=== PATIENT | female | born 1990 | race Two or more races ===

== ENCOUNTER 2019-10-22 19:04 | Emergency (ER) | payer OTHER ==
[~2019-10-22] VITALS: Ht 160 cm; Wt 52.2 kg
[2019-10-22] MEDS ORDERED: TUSNEL LIQUID178 ML PO (21:27)
[2019-10-22] MEDS ORDERED: ZITHROMAX500 MG PO (21:27)
== END 2019-10-22 21:32 | disposition home or self-care (01) ==
LOC: ER 19:04
DX: J00 Acute nasopharyngitis [common cold] (principal); B96.0 Mycoplasma pneumoniae [M. pneumoniae] as the cause of diseases classified elsewhere

== ENCOUNTER 2019-10-26 10:00 | Outpatient (CLI) | payer OTHER ==
[~2019-10-26 10:00] MED LIST: TUSNEL LIQUID178 ML PO; ZITHROMAX500 MG PO
== END 2019-10-26 10:06 | disposition home or self-care (01) ==
LOC: LAB 10:00
DX: D69.8 Other specified hemorrhagic conditions (principal)

== ENCOUNTER 2022-10-11 06:24 | Outpatient (CLI) | payer OTHER | END 2022-10-11 07:00 | disposition home or self-care (01) | LOC: TOM 06:24 | DX: R31.21 Asymptomatic microscopic hematuria (principal); R31.9 Hematuria, unspecified ==

== ENCOUNTER 2022-11-11 14:32 | Emergency (ER) | payer OTHER ==
[~2022-11-11] VITALS: Ht 160 cm; Wt 49.9 kg
[2022-11-11] MEDS ORDERED: TRI-LO-SPRINTE1 EACH PO (15:24)
== END 2022-11-11 17:54 | disposition home or self-care (01) ==
LOC: ER 14:32
DX: G62.9 Polyneuropathy, unspecified (principal); Z88.8 Allergy status to other drugs, medicaments and biological substances

== ENCOUNTER 2023-02-01 15:02 | Outpatient (CLI) | payer OTHER ==
[~2023-02-01 15:02] MED LIST changes: +TRI-LO-SPRINTE1 EACH PO
== END 2023-02-01 15:30 | disposition home or self-care (01) ==
LOC: TOM 15:02
DX: R10.31 Right lower quadrant pain (principal)

== ENCOUNTER 2023-05-21 08:02 | Outpatient (CLI) | payer OTHER | END 2023-05-21 08:20 | disposition home or self-care (01) | LOC: SONOGRAMA 08:02 | DX: R10.31 Right lower quadrant pain (principal) ==

== ENCOUNTER 2023-07-18 06:35 | Emergency (ER) | payer OTHER ==
[~2023-07-18] VITALS: Ht 160 cm; Wt 52.2 kg
== END 2023-07-18 09:09 | disposition home or self-care (01) ==
LOC: ER 06:35
DX: K30 Functional dyspepsia (principal)

== ENCOUNTER 2023-08-09 06:50 | Outpatient (CLI) | payer OTHER | END 2023-08-09 07:15 | disposition home or self-care (01) | LOC: SONOGRAMA 06:50 | DX: R10.31 Right lower quadrant pain (principal) ==

== ENCOUNTER 2024-03-20 08:37 | Outpatient (CLI) | payer OTHER | END 2024-03-20 08:44 | disposition home or self-care (01) | LOC: RAD 08:37 | DX: J32.1 Chronic frontal sinusitis (principal); M47.896 Other spondylosis, lumbar region ==

== ENCOUNTER 2024-07-23 12:36 | Outpatient (CLI) | payer OTHER | END 2024-07-23 12:37 | disposition home or self-care (01) | LOC: NUCLEAR 12:36 | DX: I27.82 Chronic pulmonary embolism (principal) ==

== ENCOUNTER → 2024-09-02 | Outpatient (CLI) | payer OTHER | END | disposition home or self-care (01) | LOC: SONOGRAMA 08:59 | DX: N29 Other disorders of kidney and ureter in diseases classified elsewhere (principal); N28.1 Cyst of kidney, acquired ==

== ENCOUNTER 2024-09-13 13:21 | Emergency (ER) | payer OTHER ==
[~2024-09-13] VITALS: Ht 160 cm; Wt 54.4 kg
[2024-09-13] MEDS ORDERED: POTASSIUM CITR15 MEQ PO (15:15)
[2024-09-13] MEDS ORDERED: TURMERIC 500 M1 EACH PO (15:15)
[2024-09-13] MEDS ORDERED: VITATRUE COMBO1 EACH PO (15:15)
[2024-09-13 16:26] LABS: HEMATOCRIT 34.9 % (36.0-45.00); HEMOGLOBIN 11.7 g/dL (12.0-15.00); MEAN CELL VOLUME 91.2 fL (80.00-100.00); MEAN CORPUSCULAR HEMOGLOBIN 30.6 pg (27.00-32.0); MEAN CORPUSCULAR HGB CONC 33.5 g/dl (32.0-36.0); PLATELET COUNT 156 K/uL (150-450); RED BLOOD COUNT 3.83 M/uL (4.00-6.00); RED CELL DISTRIBUTION WIDTH 12.4 % (11.5-14.5)
[2024-09-13 16:56] LABS: ALBUMIN 4.3 gm/dL (3.4-5.0); ALKALINE PHOSPHATASE 43 U/L (50-136); ALT/SGPT 18 U/L (12-78); ANION GAP 10 (10.0-20.0); AST/SGOT 10 U/L (15-37); BILIRUBIN TOTAL 0.33 mg/dL (0.3-1.2); BLOOD UREA NITROGEN 14 mg/dL (7-18); BUN CREA RATIO 25 (7.0-25.0); CALCIUM 9.3 mg/dL (8.5-10.1); CARBON DIOXIDE 27 mEq/L (21-32); CHLORIDE 108 mmol/L (98-107); CREATININE SERUM 0.55 mg/dL (0.55-1.02); GFR 125.78; GLOBULINA 2.9 G/DL (2.4-3.5); GLUCOSE FASTING 86 mg/dL (65-100); OSMOLALITY SERUM 281 MOSM/KG (275-295); POTASSIUM 3.77 mEq/L (3.5-5.1); SODIUM 141 mmol/L (136-145); TOTAL PROTEIN 7.2 gm/dL (6.4-8.2)
[2024-09-13 16:59] LABS: HCG QUANTITATIVE < 1 mUI/mL (1-3)
[2024-09-13 18:11] LABS: PH,URINE 5.5 (5.0-8.0); URINE APPEARANCE Clear; URINE BILIRRUBIN Negative (NEGATIVE); URINE BLOOD Moderate; URINE COLOR Yellow; URINE GLUCOSE Negative (NEGATIVE); URINE LEUKOCYTE Negative; URINE NITRATE Negative; URINE PROTEIN Negative (NEGATIVE); URINE UROBILINOGEN 0.2 E.U./dl
[2024-09-13 18:19] LABS: URINE BACTERIA 354.8 uL (0.0-1933); URINE EPITHELIAL CELLS 4.2 uL (0.0-38.8); URINE RBC 52.5 uL (0.0-20.8); URINE WBC 2.5 uL (0.0-23.2)
[2024-09-13 18:27] LABS: URINE CAST 0.29 uL (0.0-1.40); URINE KETONE 40 (NEGATIVE)
== END 2024-09-13 18:32 | disposition home or self-care (01) ==
LOC: ER 13:23
PROVIDERS: General Practice
DX: R20.0 Anesthesia of skin (principal); R20.2 Paresthesia of skin; Z91.041 Radiographic dye allergy status

== ENCOUNTER 2025-08-10 15:06 | Outpatient (CLI) | payer OTHER ==
[~2025-08-10 15:06] MED LIST changes: +POTASSIUM CITR15 MEQ PO; +TURMERIC 500 M1 EACH PO; +VITATRUE COMBO1 EACH PO
== END 2025-08-10 16:45 | disposition home or self-care (01) ==
LOC: NST 15:06
PROVIDERS: ATTEND Obstetrics & Gynecology
DX: Z34.83 Encounter for supervision of other normal pregnancy, third trimester (principal)

== ENCOUNTER 2025-09-07 13:11 | Outpatient (CLI) | payer OTHER ==
[~2025-09-07] VITALS: Ht 160 cm; Wt 65.8 kg
[2025-09-07 15:12] VITALS: BP 147/83
[2025-09-07] MEDS ORDERED: ZOLOFT100 MG (16:10)
[2025-09-07 16:26] LABS: BASO % 0.3 % (0.1-1.2); EOS # 0.10 (0.04-0.54); EOS % 1.7 % (0.7-7.0); LYMPH # 0.62 (1.18-3.74); LYMPH % 10.3 % (19.3-53.1); MEAN PLATELET VOLUME 12.00 fl (9.4-12.4); MONO # 0.62 (0.24-0.82); MONO % 10.3 % (4.7-12.5); NEUT # 4.64 (1.56-6.13); NEUT % 77.1 % (34.0-71.1); RED CELL DISTRIBUTION WIDTH 12.9 % (11.6-14.4)
[2025-09-07 16:59] LABS: ALT/SGPT 18.0 U/L (12-78); AST/SGOT 15.0 U/L (15-37); BILIRUBIN TOTAL 0.24 mg/dL (0.3-1.2); BUN CREA RATIO 18.0 (7.0-25.0); CREATININE SERUM 0.44 mg/dL (0.55-1.02); GFR 161.79; GLOBULINA 3.2 G/DL (2.4-3.5); GLUCOSE FASTING 78.0 mg/dL (65-100); OSMOLALITY SERUM 284.0 MOSM/KG (275-295)
[2025-09-07 20:41] VITALS: BP 141/70
[2025-09-07 23:46] VITALS: BP 127/69
[2025-09-08 03:05] VITALS: BP 127/77
[2025-09-08 05:33] LABS: URINE APPEARANCE Clear; URINE BILIRRUBIN Negative (NEGATIVE); URINE BLOOD Negative; URINE COLOR Yellow; URINE GLUCOSE Negative (NEGATIVE); URINE LEUKOCYTE Negative; URINE NITRATE Negative; URINE PROTEIN Negative (NEGATIVE); URINE UROBILINOGEN 0.2 E.U./dl
[2025-09-08 05:42] LABS: URINE BACTERIA 99.5 uL (0.0-1933); URINE EPITHELIAL CELLS 2.7 uL (0.0-38.8); URINE RBC 4.1 uL (0.0-20.8); URINE WBC 4.2 uL (0.0-23.2)
[2025-09-08 05:47] LABS: URINE CAST 0.00 uL (0.0-1.40); URINE KETONE 40 (NEGATIVE)
[2025-09-08 06:24] LABS: BASO % 0.7 % (0.1-1.2); EOS # 0.14 (0.04-0.54); EOS % 2.4 % (0.7-7.0); LYMPH # 0.83 (1.18-3.74); LYMPH % 14.2 % (19.3-53.1); MEAN PLATELET VOLUME 11.60 fl (9.4-12.4); MONO # 0.62 (0.24-0.82); MONO % 10.6 % (4.7-12.5); NEUT # 4.20 (1.56-6.13); NEUT % 71.8 % (34.0-71.1); RED CELL DISTRIBUTION WIDTH 12.8 % (11.6-14.4)
[2025-09-08 06:57] LABS: ALT/SGPT 17.0 U/L (12-78); AST/SGOT 15.0 U/L (15-37); BILIRUBIN TOTAL 0.22 mg/dL (0.3-1.2); BUN CREA RATIO 20.0 (7.0-25.0); CREATININE SERUM 0.35 mg/dL (0.55-1.02); GFR 210.69; GLOBULINA 3.0 G/DL (2.4-3.5); GLUCOSE FASTING 80.0 mg/dL (65-100); OSMOLALITY SERUM 280.0 MOSM/KG (275-295)
[2025-09-08 08:28] VITALS: BP 127/70
== END 2025-09-08 08:48 | disposition home or self-care (01) ==
LOC: NST 13:11 → OBS/DEL 13:11
PROVIDERS: Obstetrics & Gynecology Gynecology; ATTEND Obstetrics & Gynecology
DX: O26.893 Other specified pregnancy related conditions, third trimester (principal); Z3A.37 37 weeks gestation of pregnancy

== ENCOUNTER 2025-09-14 09:00 | Inpatient (IN) | payer OTHER ==
[~2025-09-14] VITALS: Ht 160 cm; Wt 64.4 kg
[~2025-09-14 09:00] MED LIST changes: +ZOLOFT100 MG
[2025-09-19 17:59] VITALS: BP 137/73
[2025-09-19] MEDS ORDERED: MISOPROSTOL 25 MCG TABLET VAG ONE (18:30)
[2025-09-19] MEDS ORDERED: MORPHINE SULFATE 4 MG/ML VIAL IV PRN (18:30)
[2025-09-19 18:58] LABS: BASO % 0.3 % (0.1-1.2); EOS # 0.10 (0.04-0.54); EOS % 1.6 % (0.7-7.0); LYMPH # 0.56 (1.18-3.74); LYMPH % 9.1 % (19.3-53.1); MEAN PLATELET VOLUME 12.30 fl (9.4-12.4); MONO # 0.64 (0.24-0.82); MONO % 10.4 % (4.7-12.5); NEUT # 4.80 (1.56-6.13); NEUT % 78.1 % (34.0-71.1); RED CELL DISTRIBUTION WIDTH 12.7 % (11.6-14.4)
[2025-09-19 18:59] LABS: URINE APPEARANCE Clear; URINE BILIRRUBIN Negative (NEGATIVE); URINE BLOOD Negative; URINE COLOR Yellow; URINE GLUCOSE Negative (NEGATIVE); URINE KETONE Negative (NEGATIVE); URINE LEUKOCYTE Negative; URINE NITRATE Negative; URINE PROTEIN Negative (NEGATIVE); URINE UROBILINOGEN 0.2 E.U./dl
[2025-09-19 19:00] LABS: URINE BACTERIA 84.5 uL (0.0-1933); URINE EPITHELIAL CELLS 4.1 uL (0.0-38.8); URINE RBC 2.1 uL (0.0-20.8); URINE WBC 2.9 uL (0.0-23.2)
[2025-09-19 19:07] LABS: URINE CAST 0.00 uL (0.0-1.40)
[2025-09-19 19:41] LABS: INR < 0.93
[2025-09-19 19:51] LABS: ALT/SGPT 19.0 U/L (12-78); AST/SGOT 16.0 U/L (15-37); BILIRUBIN TOTAL 0.26 mg/dL (0.3-1.2); BUN CREA RATIO 13.0 (7.0-25.0); CREATININE SERUM 0.46 mg/dL (0.55-1.02); GFR 153.7; GLOBULINA 3.5 G/DL (2.4-3.5); GLUCOSE FASTING 143.0 mg/dL (65-100); OSMOLALITY SERUM 279.0 MOSM/KG (275-295)
[2025-09-19 23:21] VITALS: BP 139/82; O2SAT 99
[2025-09-20 03:22] VITALS: BP 138/86
[2025-09-20 07:35] VITALS: BP 149/76
[2025-09-20] MEDS ORDERED: OXYTOCIN 500 ML IV ONE (08:30)
[2025-09-20 11:22] VITALS: BP 139/76
[2025-09-20 15:00] VITALS: BP 145/79
[2025-09-20] MEDS ORDERED: OXYTOCIN 1,000 ML IV SCH (18:45)
[2025-09-20] MEDS ORDERED: MORPHINE SULFATE 4 MG/ML CARTRIDGE IV PRN (18:45)
[2025-09-20] MEDS ORDERED: ERYTHROMYCIN BASE OPHT 1GM EACH TUBE OP ONE (19:15)
[2025-09-20] MEDS ORDERED: OXYTOCIN 20 UNITS/1000ML 0.45% PIGGYBAG IV ONE (19:15)
[2025-09-20] MEDS ORDERED: CARBOPROST TROMETHAMINE 250 MCG/ML AMPUL IM ONE (21:00)
[2025-09-20 22:41] VITALS: BP 148/88
[2025-09-21 01:53] VITALS: BP 128/66
[2025-09-21] MEDS ORDERED: KETOROLAC TROMETHAMINE 60 MG VIAL IM ONE (02:15)
[2025-09-21] MEDS ORDERED: OxyCODONE HCL 5 MG TABLET (ROXICODONE) PO PRN (02:15)
[2025-09-21 08:00] VITALS: BP 140/79
[2025-09-21 16:37] VITALS: BP 144/82
[2025-09-22 02:38] VITALS: BP 130/85
[2025-09-22 08:57] VITALS: BP 150/70
== END 2025-09-22 13:33 | disposition home or self-care (01) | DRG 788 ==
LOC: LDR 09-19 17:18 → OB/GYN 09-19 17:18
PROVIDERS: Obstetrics & Gynecology Gynecology; ADMIT Obstetrics & Gynecology; ATTEND Obstetrics & Gynecology
PROC: 3E0P7VZ Introduction of Hormone into Female Reproductive, Via Natural or Artificial Opening (ICD-10-PCS; 2025-09-19)
PROC: 4A1HXCZ Monitoring of Products of Conception, Cardiac Rate, External Approach (ICD-10-PCS; 2025-09-19)
PROC: 3E033VJ Introduction of Other Hormone into Peripheral Vein, Percutaneous Approach (ICD-10-PCS; 2025-09-20)
PROC: 10D00Z1 Extraction of Products of Conception, Low, Open Approach (ICD-10-PCS; principal; 2025-09-20 19:15)
DX: O24.420 Gestational diabetes mellitus in childbirth, diet controlled (principal); O13.4 Gestational [pregnancy-induced] hypertension without significant proteinuria, complicating childbirth; Z3A.38 38 weeks gestation of pregnancy; Z37.0 Single live birth

== ENCOUNTER 2025-09-16 23:21 | Outpatient (CLI) | payer OTHER ==
[~2025-09-16] VITALS: Ht 160 cm; Wt 64.9 kg
[2025-09-16 23:10] VITALS: BP 141/74
[2025-09-16 23:44] LABS: BASO % 0.5 % (0.1-1.2); EOS # 0.12 (0.04-0.54); EOS % 2.1 % (0.7-7.0); LYMPH # 0.87 (1.18-3.74); LYMPH % 14.9 % (19.3-53.1); MEAN PLATELET VOLUME 12.40 fl (9.4-12.4); MONO # 0.77 (0.24-0.82); NEUT # 4.02 (1.56-6.13); NEUT % 69.0 % (34.0-71.1); RED CELL DISTRIBUTION WIDTH 12.4 % (11.6-14.4); URINE APPEARANCE Clear; URINE BILIRRUBIN Negative (NEGATIVE); URINE BLOOD Trace; URINE COLOR Yellow; URINE GLUCOSE Negative (NEGATIVE); URINE KETONE Negative (NEGATIVE); URINE LEUKOCYTE Negative; URINE NITRATE Negative; URINE PROTEIN Trace (NEGATIVE); URINE UROBILINOGEN 0.2 E.U./dl
[2025-09-16 23:45] LABS: MONO % 13.2 % (4.7-12.5)
[2025-09-16 23:47] LABS: URINE BACTERIA 195.5 uL (0.0-1933); URINE EPITHELIAL CELLS 4.5 uL (0.0-38.8); URINE RBC 7.5 uL (0.0-20.8); URINE WBC 4.8 uL (0.0-23.2)
[2025-09-16 23:49] LABS: URINE CAST 0.00 uL (0.0-1.40)
[2025-09-17 00:07] LABS: ALT/SGPT 17.0 U/L (12-78); AST/SGOT 11.0 U/L (15-37); BILIRUBIN TOTAL 0.17 mg/dL (0.3-1.2); BUN CREA RATIO 22.0 (7.0-25.0); CREATININE SERUM 0.41 mg/dL (0.55-1.02); GFR 175.53; GLOBULINA 3.1 G/DL (2.4-3.5); GLUCOSE FASTING 99.0 mg/dL (65-100); OSMOLALITY SERUM 282.0 MOSM/KG (275-295)
[2025-09-17 04:25] VITALS: BP 124/63
[2025-09-17 07:45] VITALS: BP 136/66
[2025-09-17 10:32] VITALS: BP 136/66
== END 2025-09-17 10:43 | disposition home or self-care (01) ==
LOC: OBS/DEL 23:21
PROVIDERS: ATTEND Obstetrics & Gynecology Gynecology
DX: O26.893 Other specified pregnancy related conditions, third trimester (principal); Z3A.38 38 weeks gestation of pregnancy